=== PATIENT | female | born 1980 | race Native Hawaiian/Other Pacific Islander ===

== ENCOUNTER 2018-07-14 19:47 | Inpatient (IN) | payer MEDICAID ==
[2018-07-14] MEDS ORDERED: Lactated Ringer's 1,000 ML IV ONE (20:33)
[2018-07-14 20:37] VITALS: BMI 40.0
[2018-07-14 21:57] LABS: BASO # 0.1 K/uL (0.0-0.2); BASO % 0.5 % (0.0-2.0); EOS # 0.1 K/uL (0.0-0.7); EOS % 0.9 % (0.0-4.0); HEMOGLOBIN 11.3 g/dL (11.0-16.0); LYMPH # 2.6 K/uL (1.0-4.3); MEAN CELL VOLUME 85.9 fL (81.0-99.0); MEAN CORPUSCULAR HEMOGLOBIN 28.9 pg (27.0-31.0); MEAN CORPUSCULAR HGB CONC 33.6 g/dL (33.0-37.0); MEAN PLATELET VOLUME 9.2 fL (7.2-11.7); MONO # 0.7 K/uL (0.0-0.8); MONO % 5.7 % (0.0-10.0); NEUT % 71.9 % (50.0-75.0); NRBC % 0.1 % (0.0-2.0); RBC 3.93 Mil/uL (3.80-5.20); RED CELL DISTRIBUTION WIDTH 13.1 % (11.5-14.5); WHITE BLOOD COUNT 12.5 K/uL (4.8-10.8)
[2018-07-14 22:00] LABS: SQUAMOUS EPITHIAL 1 /hpf (0-5); URINE BILIRUBIN NEGATIVE (NEGATIVE); URINE BLOOD NEGATIVE (NEGATIVE); URINE CLARITY Clear (Clear); URINE COLOR Yellow (YELLOW); URINE GLUCOSE (UA) NORMAL (Normal); URINE LEUKOCYTE ESTERASE NEG Leu/uL (Negative); URINE PROTEIN NEGATIVE (NEGATIVE); URINE UROBILINOGEN NORMAL mg/dL (0.2-1.0)
[2018-07-14 22:16] LABS: ALB/GLOB RATIO 1.1 (1.0-2.1); ALBUMIN 3.7 g/dL (3.5-5.0); ALT/SGPT 50 U/L (9-52); AST/SGOT 50 U/L (14-36); BLOOD UREA NITROGEN 11 mg/dL (7-17); CALCIUM 9.4 mg/dl (8.6-10.4); GFR NON-AFRICAN AMERICAN > 60
--- NOTE | 2018-07-14 22:25 | OBHP ---
Datetime: 07/14/2018 20:42 IP Adm Impression: Term, intrauterine ; No Active Labor IP Chief Complaint Other: Oligohydramnios; previous C/S; AMA IP Admit Plan: Admit to unit; Initiate Section protocol Admit Comment, IP Provider: This is a private patient of Dr. Elias 37 y.o. , LMP 10/31/17, MIHIR 08/08/18, EGA 36w 3d, previous C/S x 2 for repeat C/S recommended by M, Dr. Gonsalves due to incidental finding of oligohydramnios - S/P ultrasound today, MÓNICA 3.3 cm . (+) AFM. Denies VB. Reports panti-liner intermittently wet over the past 2 weeks. Denies Ctx. Pren atal care: Dr. Elias - late to care. AMA. Obesity. Previous C/S x 2 P Ob: C/S x 2: both females, both at 38 weks. 2004, 8 1/2 lb, Breech; [facility] 2008, 7 1/[address], [facility]; no complicaitons. VTOP x 5, all in first trimester - 2 medical, 3 with D_C; no complication s. P LABORER TANBARK: 9 x 30 x 5. (+) chlamydia; (+) GC "in my 20's". 2012, abnormal Pap; S/P colpo. F/U Pap - n eg. 2017, (+) HSV - "they did blood work"; denies ever having any lesions. Denies h/o myoma, ovarian cysts. PMH: denies PSH: D_C x 3; C/S x 2 NKDA Meds: PNV Soc Hx: denies tobacco, illicit drug or EtOH use. 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 With FO B x 1 year ("I've known him for 11 years") Fam Hx: Patient is adopted; does not know her biological parents; nor any of their history P.E.: as above. Mildly obese, slighltly anxious. Awake, alert, oriented to time, person and place. Pleasant and cooperative Assessment: 37 y.o. [id number], 36w 5d, prev C/S x 2; oligohydramnios for elective repeat C/S. AMA. Cat egory 1 tracing. Patient last ate at 1200 hours. Clinically stable. Plan: 1) Admit 2) NPO 3) Admission labs 4) Continouos EFM 5) Pre-op for the O.R. in the morning - as per and D/W Dr. Elias Pelvic Type - PN: Adequate Extremities - PN: Normal Abdomen - PN: Normal Back - PN: Normal Breast - PN: Not Done Lungs - PN: Normal Heart - PN: Normal Thyroid - PN: Not Done Neurologic - PN: Normal HEENT - PN: Normal General - PN: Normal Presentation-Admit: Vertex FHR - Baseline A Provider: 135 Membranes, Provider: Intact Contraction Comments Provider: 3-4 Comments, ACOG Physical Exam: Skin: multiple tattooes Abdomen: Obese. Gravid. Soft. Non tender. Healed Pfannenstiel scar. Fundal height 37 cm Perineum: no lesions All other systems reviewed and are negative Gestation - Est Wks by US: 36w 3d IP Hx Assessment: The History has been Reviewed and is Current EGA AdmitDate IP: 36.3 Vital Signs Provider: Reviewed IP Indication for Induction: Not Applicable IP Chief Complaint: Other NICHD Variability Prov Fetus A: Moderate 6-25bpm NICHD Accel Fetus A IP Provider: [id number] FHR Category Provider Fetus A: Category I NICHD Decel Fetus A IP Provider: None Dilatation, Provider: 0 Effacement, Provider: 50 Station, Provider: -3 Genitourinary Exam: Normal DTRs - PN: Not Done
[2018-07-14] MEDS ORDERED: cefOXitin IV 2 gm in Dextrose 2 GM/50 ML BAG IVPB SCH (23:00)
[2018-07-15] MEDS ORDERED: Sodium Citrate/Citric Acid 15 ml Sol PO ONE (06:45)
[2018-07-15] MEDS ORDERED: cefOXitin IV 2 gm in Saline 2 GM/50 ML BAG IVPB ONE (07:12)
[2018-07-15] MEDS ORDERED: Oxytocin 20 units in LR 2,000 ML IV ONE ×2 (07:12→08:20)
[2018-07-15] MEDS ORDERED: Sodium Citrate/Citric Acid 15 ml Sol ONE (07:12)
[2018-07-15] MEDS ORDERED: Morphine 1 mg/ml preservative-free Inj(Duramorph) ONE (08:02)
[2018-07-15] MEDS ORDERED: Phenylephrine 10 mg/ml Inj ONE (08:24)
[2018-07-15] MEDS ORDERED: Oxycodone/Acetaminophen 5/325 mg Tab PO PRN (09:29)
[2018-07-15] MEDS ORDERED: Naloxone 0.4 mg/ml Inj (Adult) IVP PRN (10:14)
[2018-07-15] MEDS ORDERED: DiphenhydrAMINE 50 mg/ml Inj IVP PRN (10:14)
--- NOTE | 2018-07-15 13:12 | HP ---
HISTORY OF PRESENT ILLNESS: The patient is 37-year-old female, 8, para 2 with two previous sections, at 36 weeks and 8 days who had an ultrasound done yesterday and was noted to have oligohydramnios with an amniotic fluid index of 3.3. The patient is coming in for an elective section. PAST MEDICAL/SURGICAL HISTORY: Significant for 2 sections, maternal obesity and 5 termination of pregnancies. Medical history is unremarkable. ALLERGIES: NONE. MEDICATIONS: Currently, she is not taking any calcium or airborne medication. PHYSICAL EXAMINATION: VITAL SIGNS: Blood pressure is 110/70, pulse is 72, respiratory rate is 20, temperature is 98.8. HEENT: Head, ears, nose, and throat examination are within normal. CHEST: Clear. CARDIAC: Reveals normal heart sounds without any murmurs. LUNGS: Clear. BREASTS: Reveal no masses. ABDOMEN: Symphysis-fundal height is 38 cm, longitudinal lie vertex. heart tones are normal. PELVIC: She has a normal vulva. Bartholin, urethra, and [place]'s gland are within normal. Cervix is long, closed, and posterior. ADMITTING DIAGNOSES: Intrauterine at 36 weeks 4 days, oligohydramnios previous section x2. Plan is to perform a lower segment section. Prior to being scheduled for the surgical procedure, the patient underwent an informed consent, discussion and education session with me in the hospital lasting approximately 45 minutes, during which time I explained to her in understandable terms the following: The nature and extent of the disease process, the nature and extent of the contemplated operation. I also explained to her the risks and potential complications of the operative procedures to include, but not limited to the infection, hemorrhage, deep vein thrombosis, atelectasis, pneumonia, pulmonary embolism, damage to the bladder, damage to the ureter, renal insufficiency, renal failure, wound infection, wound dehiscence, incisional hernia, keloid formation, damage to the large and small intestine, damage to the inferior vena cava and the aorta requiring extensive repair, anesthesia complications, electrolyte imbalance, possibility of , low scores, breathing difficulties in the baby, and other complications that were discussed, but are not listed above. I discussed with the patient the anticipated benefits and results of the surgery including conservative estimate of the successful outcome. I discussed with the patient what the operation would not accomplish. I informed the patient of the possibility of unanticipated pathology requiring a more extensive procedure. All the questions from the patient were encouraged, welcomed, and answered to her satisfaction. Cris Harris MD
[2018-07-15] MEDS: Prenatal Multivit/Folic Acid/Iron Tab PO SCH (14:53)
[2018-07-15] MEDS: cefOXitin IV 2 gm in Dextrose 2 GM/50 ML BAG IVPB SCH ×2 (15:21→23:23)
--- NOTE | 2018-07-15 20:47 | OP ---
PROCEDURE DATE: 07/14/2018 PREOPERATIVE DIAGNOSES: Intrauterine at 36 weeks and 4 days, oligohydramnios, and previous section x2. POSTOPERATIVE DIAGNOSES: Intrauterine at 36 weeks and 4 days, oligohydramnios. PROCEDURE: Lower segment section. FINDINGS: A live female infant, Apgars 9 in 1 minute and 9 in 5 minutes. Adhesions involving the posterior rectus sheath and lower uterine segment. SURGEON: Cris Harris MD OPHTHALMIC MEDICAL ASSISTANT: Aiden Goodwin MD ESTIMATED BLOOD LOSS: 300 mL. ANESTHESIA: Spinal. COMPLICATIONS: Nil. INDICATION: After the risks, benefits, and alternatives of the planned procedure including, but not limited to, infection, hemorrhage, deep vein thrombosis, atelectasis, pneumonia, pulmonary embolism, damage to the bladder, damage to the ureter, renal insufficiency, renal failure, wound infection, wound dehiscence, incisional hernia, keloid formation, damage to the large and small intestines, damage to the inferior vena cava and the aorta requiring extensive repair, anesthesia complications, electrolyte imbalance, possibility of , fluid overload, cerebral edema, embolism, and other complications were discussed, but are not listed above, have been explained to the patient and all her questions answered. Informed consent was obtained. DESCRIPTION OF PROCEDURE: The patient was taken to the operating room in a stable condition. Under a suitable level of spinal analgesia, she was prepped and draped in a sterile fashion after having been placed in a supine position. The abdomen was entered through a Pfannenstiel-type incision and carried through the subcutaneous tissues to the fascia. Fascia was opened transversely and the rectus abdominis musculature was then in the midline to remove the parietal peritoneum, which was entered sharply and incised superiorly and inferiorly. Adhesions involving the uterus and lower uterine segment were then lysed. The bladder peritoneum was then incised in a curvilinear fashion. The lower uterine segment was then entered through a curvilinear incision. The surgeon's fingers were inserted into the lower uterine segment to grasp the infant's head, which was lying in a right occipital anterior position. The head was easily delivered, nose and mouth was suctioned free of amniotic fluid, and the remainder of the was delivered without any difficulty. Cord was doubly clamped and cut, and the baby was handed over to the pediatricians who were in attendance. Cord blood was collected with Pitocin running, placenta was manually removed. The endometrium was then cleaned free of remaining membranes and clots. The uterine incision was then closed in layers with the first layer being a running interlocking layer using #1 chromic and the second layer being used to imbricate the first layer. Hemostasis was good. The bladder peritoneum was then reapproximated using a running suture of 2-0 chromic. Peritoneal cavity was then irrigated using copious amounts of saline. The saline was evacuated. The abdomen was then closed in layers with 0 chromic to the parietal peritoneum. Rectal muscles were reapproximated using interrupted sutures of 0 chromic. Fascia was reapproximated using two separate running sutures of 0 Vicryl to meet in the midline. Subcutaneous tissues were reapproximated using interrupted sutures of 0 plain, and the initial skin incision was reapproximated using 4-0 Vicryl in a subcuticular fashion. Estimated blood loss for the procedure was 300 mL. Pad, needle, and instrument counts were correct x2. There were no complications. Cris Harris MD
[2018-07-15] MEDS: Oxycodone/Acetaminophen 5/325 mg Tab PO PRN (23:26)
[2018-07-16] MEDS: Lactated Ringer's 1,000 ML IV SCH ×2 (04:42→04:44)
[2018-07-16] MEDS: Oxycodone/Acetaminophen 5/325 mg Tab PO PRN ×2 (06:41→17:43)
[2018-07-16 08:51] LABS: HEMOGLOBIN 10.4 g/dL (11.0-16.0); MEAN CELL VOLUME 87.7 fL (81.0-99.0); MEAN CORPUSCULAR HEMOGLOBIN 29.4 pg (27.0-31.0); MEAN CORPUSCULAR HGB CONC 33.5 g/dL (33.0-37.0); RBC 3.54 Mil/uL (3.80-5.20); RED CELL DISTRIBUTION WIDTH 13.2 % (11.5-14.5); WHITE BLOOD COUNT 14.1 K/uL (4.8-10.8)
[2018-07-16] MEDS: Prenatal Multivit/Folic Acid/Iron Tab PO SCH (10:42)
[2018-07-16] MEDS: Enoxaparin 40 mg Syringe SC SCH (10:43)
[2018-07-16] MEDS: Simethicone 80 mg Chewtab PO SCH ×2 (17:42→21:33)
--- NOTE | 2018-07-16 20:44 | PN ---
DATE: 07/16/2018 SUBJECTIVE: The patient has no complaints. PHYSICAL EXAMINATION: VITAL SIGNS: Stable. She is afebrile. ABDOMEN: Incision is clean and intact. Bowel sounds are normal. EXTREMITIES: Nontender, with no evidence of DVT. CHEST: Clear. CARDIAC: Normal heart sounds without any murmur. LUNGS: Clear. ASSESSMENT: The patient is status post section day #1. PLAN: To ambulate the patient. Advance diet as tolerated. Cris Harris MD
[2018-07-17] MEDS: Oxycodone/Acetaminophen 5/325 mg Tab PO PRN ×2 (08:17→13:36)
[2018-07-17 08:51] LABS: MEAN CELL VOLUME 88.2 fL (81.0-99.0); MEAN CORPUSCULAR HEMOGLOBIN 29.6 pg (27.0-31.0); MEAN CORPUSCULAR HGB CONC 33.6 g/dL (33.0-37.0); MEAN PLATELET VOLUME 8.9 fL (7.2-11.7); RBC 3.38 Mil/uL (3.80-5.20); RED CELL DISTRIBUTION WIDTH 13.6 % (11.5-14.5); WHITE BLOOD COUNT 13.1 K/uL (4.8-10.8)
[2018-07-17] MEDS: Prenatal Multivit/Folic Acid/Iron Tab PO SCH (10:29)
[2018-07-17] MEDS: Simethicone 80 mg Chewtab PO SCH ×4 (10:29→23:18)
[2018-07-17] MEDS: Enoxaparin 40 mg Syringe SC SCH (10:31)
[2018-07-18] MEDS: Prenatal Multivit/Folic Acid/Iron Tab PO SCH (09:08)
[2018-07-18] MEDS: Simethicone 80 mg Chewtab PO SCH (09:08)
[2018-07-18] MEDS ORDERED: Influenza Vaccine 60 MCG/0.5 ML SYR (3 yr & up) IM ONE (09:10)
[2018-07-18] MEDS: Oxycodone/Acetaminophen 5/325 mg Tab PO PRN (09:10)
[2018-07-18] MEDS: Enoxaparin 40 mg Syringe SC SCH (09:11)
[2018-07-18 09:42] VITALS: PULSE 75; RESP 18; TEMP 97.9; O2SAT 99
[2018-07-18 17:31] VITALS: BP 130/82
--- NOTE | 2018-07-21 08:47 | OBDS ---
DELIVERY PERSONNEL Delivery Doctor: Maricarmen Harris MD Scrub Nurse: Brianne Vasquez Turkey Pinner: Manpreet Wilcox RN Anesthesiologist: DR ROJAS Resident: tram MATERNAL INFORMATION Delivery Anesthesia: Spinal Medications in Delivery: PITOCIN 20 Estimated Blood Loss (ml): 300 Placenta Cultured: Yes Maternal Complications: Other Other Maternal Complications: IUP 36.4 MÓNICA 3 RN Comments: living baby girl apg 9-9 LABOR SUMMARY EDC: 08/08/2018 00:00 No. Babies in Womb: 1 Attempted: No Labor Anesthesia: None LABOR INFORMATION Oxytocin: N/A Group B Beta Strep: unknown Antibiotics # of Doses: 1 Antibiotics Time of Last Dose: 7 46 Steroids Given: None Reason Steroids Not Administered: Not Applicable MEMBRANES Membranes Rupture Method: Artificial Rupture of Membranes: 07/15/2018 08:25 Length of Rupture (hrs): 0.02 Amniotic Fluid Color: Clear Amniotic Fluid Amount: Scant Amniotic Fluid Odor: Normal STAGES OF LABOR Stage 3 hrs: 0 Stage 3 min: 1 BABY A INFORMATION Delivery Date/Time: 07/15/2018 08:26 Method of Delivery: Born in Route : No : N/A Forceps: N/A Vacuum Extraction: N/A Shoulder Dystocia : No SHOULDER DYSTOCIA BABY A Delivery Date/Time: 07/15/2018 08:26 PRESENTATION/POSITION BABY A Presentation: Cephalic Cephalic Presentation: Vertex Breech Presentation: N/A PLACENTA INFORMATION BABY A Placenta Delivery Time : 07/15/2018 08:27 Placenta Method of Delivery: Expressed Placenta Status: Delivered SCORES BABY A Heart Rate 1 min: >100 bpm Resp Effort 1 min: Good Cry Reflex Irritability 1 min: Cough or Sneeze or Pulls Away Muscle Tone 1 min: Active Motion Color 1 min: Body [place], Extremities Blue Resuscitation Effort 1 min: Tactile Stimulation SCORE 1 MIN: 9 Heart Rate 5 min: >100 bpm Resp Effort 5 min: Good Cry Reflex Irritability 5 min: Cough or Sneeze or Pulls Away Muscle Tone 5 min: Active Motion Color 5 min: Body [place], Extremities Blue SCORE 5 MIN: 9 INFORMATION BABY A Gestational Age at Delivery: 36.4 Gestational Status: Term Infant Outcome : Liveborn Condition : Stable Sex: Female IDENTIFICATION/MEDS BABY A ID Band Number: [id number] Sensor Number: [id number] WEIGHT/LENGTH BABY A Infant Birthweight (gms): 2705 Weight (lb): 5 Infant Weight (oz): 15 Length Inches: 18.25 Infant Length cms: 46.4 CORD INFORMATION BABY A No. Cord Vessels: 3 Nuchal Cord : N/A Cord Blood Taken: Yes Suction: Mouth; Nose
--- NOTE | 2018-07-21 08:52 | OBDCSUM ---
Datetime: 07/18/2018 07:57 Discharge Instructions, Provider: Routine instructions given Contraception discussed, Prov: Yes Discharge Diagnosis Prov Other: 36 weeks 4 days section
== END 2018-07-18 13:31 | disposition home or self-care (01) | DRG 371 ==
LOC: C.EROB 19:47 → C.4D 20:30 → C.4M 07-15 11:43
PROVIDERS: ADMIT Obstetrics & Gynecology Reproductive Endocrinology; ATTEND Obstetrics & Gynecology Reproductive Endocrinology
PROC: 10D00Z1 Extraction of Products of Conception, Low, Open Approach (ICD-10-PCS; principal; 2018-07-14)
DX: O41.03X0 Oligohydramnios, third trimester, not applicable or unspecified (principal); O60.13X0 Preterm labor second trimester with preterm delivery third trimester, not applicable or unspecified; O34.211 Maternal care for low transverse scar from previous cesarean delivery; O99.214 Obesity complicating childbirth; Z3A.36 36 weeks gestation of pregnancy; Z68.41 Body mass index [BMI] 40.0-44.9, adult; E66.9 Obesity, unspecified; Z37.0 Single live birth